=== PATIENT | female | born 1985 ===

== ENCOUNTER 2020-10-12 15:57 | Outpatient (CLI) | payer MEDICAID ==
--- NOTE | 2020-10-12 19:34 | XRAY Report ---
PROCEDURE: Tib/Fib RT INDICATIONS: RIGHT LEG PAIN TECHNIQUE: 2 views of the tibia and fibula were acquired. COMPARISON: None FINDINGS: Bones: No fractures or dislocations. No suspicious bony lesions. Soft tissues: No suspicious soft tissue calcifications or masses. IMPRESSION: Marker was placed in the area of pain and laceration. No fracture or foreign body seen. No osteomyeli tis is identified. Reviewed by: Jj Swanson MD on 10/12/2020 7:33 PM PST Approved by: Jj Swanson MD on 10/12/2020 7:33 PM PST Station ID: [id number]
== END 2020-10-12 23:59 | disposition home or self-care (01) ==
LOC: DI.N 15:57
PROVIDERS: ATTEND Family Medicine
DX: M79.604 Pain in right leg (principal)